=== PATIENT | female | born 2000 | race Caucasian/White ===

== ENCOUNTER 2022-08-13 17:22 | Emergency (ER) | payer OTHER ==
[~2022-08-13] VITALS: Ht 162.6 cm; Wt 78.2 kg
[2022-08-13] MEDS ORDERED: normal saline 1000ML IV soln IVB ONE (19:55)
[2022-08-13] MEDS ORDERED: ondansetron/PF 4mg/2ml inj IV ONE (19:55)
[2022-08-13] MEDS ORDERED: LORazepam 2 mg/ml vial IV ONE (19:55)
[2022-08-13] MEDS ORDERED: ketorolac trometh. 30mg/ml inj. IV ONE (19:55)
[2022-08-13] MEDS ORDERED: ONDA4TAB12 PO (20:01)
[2022-08-13 21:05] VITALS: BP 118/73
== END 2022-08-13 21:08 | disposition home or self-care (01) ==
LOC: ER 17:23
DX: S06.0X0A Concussion without loss of consciousness, initial encounter (principal); G43.909 Migraine, unspecified, not intractable, without status migrainosus; V89.2XXA Person injured in unspecified motor-vehicle accident, traffic, initial encounter; Y93.89 Activity, other specified; Y92.89 Other specified places as the place of occurrence of the external cause; Y99.8 Other external cause status
CPT/HCPCS: 96361; 96374; 96375; 99284; J1885; J2405; J7030